=== PATIENT | female | born 1995 | race Caucasian/White ===

== ENCOUNTER 2016-06-28 17:41 | Emergency (ER) | payer MEDICAID ==
--- NOTE | 2016-06-28 18:02 | Emergency Department Record ---
History of Present Illness - General Chief complaint: complication Stated complaint: VAG. BLEEDING/ 11 WKS PG Time Seen by Provider: 06/28/16 17:55 Source: Patient Mode of Arrival: Ambulatory Limitations: No limitations Travel/[facility] Within 21 Days of Symptoms: No - History of Present Illness Initial comments: 20 yo female presents with her 4th . She has a history of one elective , one live to term, and one miscarriage that occurred in the early fall. She believes she is about 11 weeks. She reports she is having vaginal bleeding and discomfort. She states she does not recall last night after she went to sleep. She wants to be checked for an STD. She was at [facility] just prior to arrival. [facility] had and [facility]. She declined transfer to [facility] at that time. MD Complaint: Vaginal bleeding Onset/Timin -: Hour(s) Location: Pelvis Radiation: None Severity scale (1-10): 4 Quality: Cramping Consistency: Constant Improves with: None Worsens with: None Associated symptoms: Vaginal bleeding Number of weeks : 11 Pre- care: None - Related Data : 4 Para: 1 Ab: 2 Home Medications Medication Instructions Recorded Confirmed Last Taken No Home Med [NO HOME MEDS] 06/28/16 06/28/16 Unknown Allergies Allergy/AdvReac Type Severity Reaction Status Date / Time Penicillins Allergy HIVES Verified 08/18/14 20:37 Review of Systems Constitutional: Denies: Chills, Fever, Malaise, Weakness Eyes: Denies: Eye discharge ENT: Denies: Congestion, Throat pain Respiratory: Denies: Cough Cardiovascular: Denies: Chest pain, Palpitations, Syncope Endocrine: Denies: Fatigue Gastrointestinal: Denies: Abdominal pain, Diarrhea, Nausea, Vomiting Genitourinary: Reports: Abnormal menses. 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 - RESPIRATORY Hx Respiratory Disorders: No - CARDIOVASCULAR Hx Cardio Disorders: No - NEURO Hx Neuro Disorders: No - GI Hx GI Disorders: No - Hx Genitourinary Disorders: No - ENDOCRINE Hx Endocrine Disorders: No - MUSCULOSKELETAL Hx Musculoskeletal Disorders: No - PSYCH Hx Psych Problems: No - HEMATOLOGY/ONCOLOGY Hx Hematology/Oncology Disorders: No Family Medical History Any Significant Family History?: No Physical Exam - General General Appearance: Alert, Oriented x3, Cooperative, No acute distress Limitations: No limitations - Head Head exam: Normal inspection - Eye Eye exam: Normal appearance - ENT ENT exam: Normal exam Ear exam: Normal external inspection Nasal Exam: Normal inspection Mouth exam: Normal external inspection Teeth exam: Normal inspection - Neck Neck exam: Normal inspection - Respiratory Respiratory exam: Normal lung sounds bilaterally. negative: Respiratory distress - Cardiovascular Cardiovascular Exam: Regular rate, Normal rhythm, Normal heart sounds - GI/Abdominal GI/Abdominal exam: Soft. negative: Distended, Guarding, Rebound, Rigid, Tenderness - Rectal Rectal exam: Deferred - exam: Normal bimanual exam, Vaginal discharge (thin white). negative: Abnormal external exam, Adnexal mass (L), Adnexal mass (R), Adnexal tenderness ( L), Adnexal tenderness (R), Cervical discharge, cervical motion tenderness - Extremities Extremities exam: Normal inspection, Full ROM, Normal capillary refill. negative: Pedal edema, Tenderness - Back Back exam: Reports: Normal inspection, Full ROM. Denies: Muscle spasm, Rash noted, Tenderness - Neurological Neurological exam: Alert, Normal gait, Oriented X3 - Psychiatric Psychiatric exam: Normal affect, Normal mood. negative: Agitated, Anxious - Skin Skin exam: Dry, Intact, Normal color, Warm Course Vital Signs 06/28/16 17:47 Temperature 98.1 F Pulse Rate 113 H Respiratory 18 Rate Blood Pressure 116/79 Pulse Ox 97 - Reevaluation(s) Reevaluation #1: US from [facility] requested. 06/28/16 18:03 Reevaluation #2: The patient was again offered assistance for a SANE evaluation She is again declining. She requests antibiotics if the event of an STD exposure Pelvis completed. 06/28/16 18:11 Reevaluation #3: Us report from [facility] reviewed: single viable IUP at 11w4d. no other acute abnormality noted. 06/28/16 18:17 Medical Decision Making - Lab Data Result diagrams: 06/28/16 18:15 06/28/16 18:15 Disposition Clinical Impression: Threatened miscarriage Disposition: Home, Self-Care Condition: (1) Good Instructions: (ED) Additional Instructions: Call for OB follow up next available Return if you have pain, fever, bleeding or vaginal discharge You have cultures in the lab that will result in about 2 days You may still consider a SANE nurse evaluation and it is encouraged you go to [facility] for this evaluation Forms: Patient Portal Access
[2016-06-28] MEDS ORDERED: AZITHROMYCIN 500 MG TABLET PO ONE (18:06)
[2016-06-28] MEDS ORDERED: CEFTRIAXONE 250 MG VIAL IM ONE (18:06)
[2016-06-28 18:26] LABS: BASO % 0.2 % (0-6); EOS % 1.2 % (0-6); GRAN % 73.3 % (47-80); HEMATOCRIT 35.7 % (35.0-47.0); HEMOGLOBIN 12.5 gm/dl (11.6-16.0); LYMPH % 19.4 % (16-45); MEAN CELL VOLUME 82.1 fl (81-97); MEAN CORPUSCULAR HEMOGLOBIN 28.7 pg (27-33); MEAN PLATELET VOLUME 9.6 fl (7.4-10.4); MONO % 5.9 % (0-9); PLATELET COUNT 289 K/uL (130-400); RED BLOOD COUNT 4.35 M/uL (3.80-5.40); RED CELL DISTRIBUTION WIDTH 12.9 % (11.5-14.5); WHITE BLOOD COUNT W/O DIFF 14.7 K/uL (4.2-12.2)
[2016-06-28 18:30] LABS: AMPHETAMINE SCREEN URINE NOT DETECTED; BARBITURATE SCREEN URINE NOT DETECTED; BENZODIAZEPINE SCREEN URINE NOT DETECTED; COCAINE SCREEN URINE NOT DETECTED; METHADONE SCREEN URINE NOT DETECTED; METHAMPHETAMINE SCREEN NOT DETECTED; OPIATE SCREEN URINE NOT DETECTED; OXYCODONE SCREEN URINE NOT DETECTED; PHENCYCLIDINE SCREEN URINE NOT DETECTED; PROPOXYPHENE SCREEN URINE NOT DETECTED; THC SCREEN URINE NOT DETECTED; TRICYCLIC ANTIDEPRESSANT SCRN NOT DETECTED
[2016-06-28 18:31] LABS: URINE APPEARANCE SL CLOUDY; URINE BILIRUBIN NEGATIVE (NEGATIVE); URINE COLOR YELLOW; URINE GLUCOSE (UA) NEGATIVE (NEGATIVE); URINE KETONE 40 mg/dL (NEGATIVE); URINE PROTEIN NEGATIVE (NEGATIVE)
[2016-06-28 18:32] LABS: URINE BLOOD TRACE-NONHEMOLYZED (NEGATIVE); URINE LEUKOCYTE ESTERASE NEGATIVE (NEGATIVE); URINE NITRITE NEGATIVE (NEGATIVE); URINE UROBILINOGEN 0.2 E.U./dL (0.20 - 1.00)
[2016-06-28 18:35] LABS: ANION GAP 12.5 (7-16); BLOOD UREA NITROGEN 8 mg/dL (7-17); CARBON DIOXIDE 22.5 mmol/L (22-30); CREATININE 0.5 mg/dL (0.52-1.04); EST GLOMERULAR FILTRATION RATE > 60 ml/min; GLUCOSE,RANDOM 96 mg/dL (70-110)
[2016-06-28 18:43] LABS: URINE BACTERIA FEW; URINE MUCUS MODERATE; URINE WBC 0 - 2 (0-2/hpf)
[2016-06-28] MEDS ORDERED: RHO(D) IMMUNE GLOBULIN 1,500 UNIT DISP.SYRIN IM ONE (18:58)
[2016-06-30 16:09] LABS: GC SPECIMEN TYPE Vaginal (())
== END 2016-06-28 19:27 | disposition home or self-care (01) ==
LOC: ER 17:41
DX: O20.0 Threatened abortion (principal); Z3A.11 11 weeks gestation of pregnancy
CPT/HCPCS: 99284 ×2; 96372; 85025; 84702; 80048; 81001; 86901; Q0111; G0477; J0696; J2790; 87210

== ENCOUNTER 2017-09-20 16:58 | Emergency (ER) | payer MEDICAID ==
--- NOTE | 2017-09-20 17:23 | Emergency Department Record ---
History of Present Illness - General Chief complaint: complication Stated complaint: VAGINAL BLEEDING/ Time Seen by Provider: 09/20/17 17:00 Source: Patient Mode of Arrival: Ambulatory Limitations: No limitations - History of Present Illness Initial comments: The patient states she is here due to a 4 day hx of mild pelvic cramping and vaginal bleeding. She did take a home preg test a week ago and it was positive. Her last normal LMP was about 7 weeks ago. The patient has had miscarriages in the past similar to this. She denies any AP, nausea, vomiting, or dizziness. MD Complaint: Vaginal bleeding Onset/Timin -: Days(s) Radiation: None Quality: Cramping Consistency: Intermittent Improves with: None Worsens with: Rest Associated symptoms: Vaginal bleeding Vaginal bleeding: Light, Heavy Number of weeks : 4 Pre-camilla care: None - Related Data : 6 Para: 1 Ab: 4 Previous Rx's Medication Instructions Recorded Clindamycin HCl [Cleocin HCl] 300 mg PO BID #14 capsule 09/20/17 Allergies Allergy/AdvReac Type Severity Reaction Status Date / Time Penicillins Allergy HIVES Verified 08/18/14 20:37 Review of Systems Constitutional: Denies: Chills, Fever Past Medical History - SOCIAL HISTORY Smoking Status: Light tobacco smoker (<10/day) Alcohol Use: None 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 - RESPIRATORY Hx Respiratory Disorders: No - CARDIOVASCULAR Hx Cardio Disorders: No - NEURO Hx Neuro Disorders: No - GI Hx GI Disorders: No - Hx Genitourinary Disorders: No - ENDOCRINE Hx Endocrine Disorders: No - MUSCULOSKELETAL Hx Musculoskeletal Disorders: No - PSYCH Hx Psych Problems: No - HEMATOLOGY/ONCOLOGY Hx Hematology/Oncology Disorders: No Family Medical History Any Significant Family History?: No Physical Exam - General General Appearance: Alert, Cooperative, No acute distress - Head Head exam: Atraumatic, Normocephalic, Normal inspection - Eye Eye exam: Normal appearance, PERRL - Neck Neck exam: Normal inspection, Full ROM. negative: Tenderness - Respiratory Respiratory exam: Normal lung sounds bilaterally. negative: Respiratory distress - Cardiovascular Cardiovascular Exam: Regular rate, Normal rhythm, Normal heart sounds - GI/Abdominal GI/Abdominal exam: Soft, Normal bowel sounds. negative: Tenderness - exam: Normal bimanual exam, Normal external exam, Normal speculum exam. negative: Adnexal mass (L), Adnexal mass (R), Adnexal tenderness (L), Adnexal tenderness (R), cervical motion tenderness, Vaginal bleeding (There is no bleeding on exam.), Vaginal discharge, Vaginal erythema - Extremities Extremities exam: Normal inspection, Full ROM, Normal capillary refill. negative: Tenderness Course Vital Signs 09/20/17 17:03 Temperature 98.3 F Pulse Rate 109 H Respiratory 20 Rate Blood Pressure 132/81 Pulse Ox 99 - Reevaluation(s) Reevaluation #1: The patient is doing very well at this time. I did discuss the US demonstrating a single live IUP. She is to practice pelvic rest and see her OB doctor in 1-2 weeks for recheck. 09/20/17 18:56 Medical Decision Making - Data Complexity MDM Data: Labs Ordered and/or Reviewed (the patient is RH Neg.), X-Ray Ordered and/or Reviewed - Lab Data Result diagrams: 09/20/17 17:20 09/20/17 17:20 - Radiology Data Radiology results: Report reviewed (US: SLIUP [id number]) Disposition Disposition: Discharge Clinical Impression: Threatened Disposition: Home, Self-Care Condition: (2) Stable Instructions: (ED) Additional Instructions: Please use Tylenol for pain and take the Clindamycin as directed. Please use pelvic rest precautions for 2 weeks. Please see your OB doctor in 1-2 weeks for recheck and a repeat US. Return to the ER for any worse pain, or bleeding. Prescriptions: Clindamycin HCl [Cleocin HCl] 300 mg PO BID #14 capsule Forms: Patient Portal Access Time of Disposition: 18:55 Quality - Quality Measures Quality Measures: - : US Determination Quality Measure: Measure #254: US Determination of Location ICD10 Codes Entered: Yes View Details: Yes US Determination of Location: < Trans-Abdominal or Trans-Vaginal US Performed > [G8806] - : Rhogam Quality Measure: Measure #255: Rhogam for Rh-Negative Women ICD10 Codes Entered: Yes Rhogam for Rh-Negative Women at Risk: < Rh-immunoglobulin (Rhogam) Ordered > [G8809] - Blood Pressure Screening View Details: Yes Does Patient Have Any of the Following: No Blood Pressure Classification: Normal BP Reading Systolic Measurement: 117 Diastolic Measurement: 73 Screening for High Blood Pressure: < Normal BP, F/U Not Required > [G8156]
[2017-09-20 17:28] LABS: BASO % 0.3 % (0-6); EOS % 0.6 % (0-6); GRAN % 70.5 % (47-80); HEMATOCRIT 41.9 % (35.0-47.0); HEMOGLOBIN 13.8 gm/dl (11.6-16.0); LYMPH % 22.2 % (16-45); MEAN CELL VOLUME 83.1 fl (81-97); MEAN CORPUSCULAR HEMOGLOBIN 27.4 pg (27-33); MEAN CORPUSCULAR HGB CONC 32.9 g/dl (32-36); MEAN PLATELET VOLUME 9.2 fl (7.4-10.4); MONO % 6.4 % (0-9); PLATELET COUNT 340 K/uL (130-400); RED BLOOD COUNT 5.04 M/uL (3.80-5.40); RED CELL DISTRIBUTION WIDTH 13.7 % (11.5-14.5); WHITE BLOOD COUNT W/O DIFF 14.2 K/uL (4.2-12.2)
[2017-09-20 17:42] LABS: BLOOD UREA NITROGEN 9 mg/dL (6-20); CREATININE 0.6 mg/dL (0.5-0.9); EST GLOMERULAR FILTRATION RATE > 60 mL/min
[2017-09-20 17:45] LABS: GLUCOSE,RANDOM 93 mg/dL (74-109)
[2017-09-20] MEDS ORDERED: RHO(D) IMMUNE GLOBULIN 1,500 UNIT DISP.SYRIN IM ONE (18:19)
--- NOTE | 2017-09-21 21:05 | ULTRASOUND REPORT ---
EXAM: ULTRASOUND OB PELV W TV - EARLY (4-13wks) HISTORY: THREATENED . TECHNIQUE: Hernandez-scale ultrasound images of the pelvis obtained transabdominally and transvaginally. Transvaginal exam obtained for improved resolution. COMPARISON: None. FINDINGS: Transabdominal Ultrasound of the Pelvis: The uterus and ovaries are not well seen due to bowel gas. No ascites. Transvaginal Ultrasound of the Pelvis: Uterus is retroverted and has normal size. An intrauterine gestational sac is present. A yolk sac is present. A crown-rump length is 0.17 cm, too small to detect cardiac activity. Ovaries are within normal limits with the corpus luteum in the left ovary. No ascites. IMPRESSION: FIRST TRIMESTER INTRAUTERINE GESTATION AT APPROXIMATELY 5 WEEKS, 2 DAYS BY CROWN -RUMP LENGTH MEASUREMENT. HECTOR IS 05/21/2018. EMBRYONIC VIABILITY IS NOT ESTABLISHED DUE EARLY GESTATION. RECOMMEND FOLLOW-UP IN TWO WEEKS. JOB NUMBER: [id number] MTDD
== END 2017-09-20 19:09 | disposition home or self-care (01) ==
LOC: ER 16:58
DX: O20.0 Threatened abortion (principal); O36.0910 Maternal care for other rhesus isoimmunization, first trimester, not applicable or unspecified; O99.331 Smoking (tobacco) complicating pregnancy, first trimester; F17.210 Nicotine dependence, cigarettes, uncomplicated; Z3A.01 Less than 8 weeks gestation of pregnancy
CPT/HCPCS: 99284; 96372; 99283; 85025; 84702; 80048; 84703; 86901; 76817; 76801; Q0111; J2790; 87210

== ENCOUNTER 2018-12-31 17:01 | Emergency (ER) | payer SELFPAY ==
[2018-12-31] MEDS ORDERED: GENTAMICIN SULFATE 0.3% OPTH 5 ML BTL OPTH ONE (17:36)
--- NOTE | 2018-12-31 17:41 | Emergency Department Record ---
History of Present Illness - General Chief complaint: Eye Problem Stated complaint: LT EYE LID SWELING Time Seen by Provider: 12/31/18 17:36 Source: Patient Mode of Arrival: Ambulatory Limitations: No limitations - History of Present Illness Initial comments: left upper eye lid with redness and tender. No change in vision or redness to eye. No pain with motion of eye. No DM No Trauma. no prior treatment. Onset/Timin -: Days(s) Onset Description: Unknown Location: Left eye Place: Home If Injury: None Eye Symptoms: Other Consistency: Constant Associated Symptoms: None Treatments Prior to Arrival: None - Related Data Home Medications Medication Instructions Recorded Confirmed Last Taken No Home Med [NO HOME MEDS] 12/31/18 12/31/18 Unknown Allergies Allergy/AdvReac Type Severity Reaction Status Date / Time Penicillins Allergy HIVES Verified 08/18/14 20:37 Travel Screening - Travel/Exposure Within Last 30 Days Have you traveled within the last 30 days?: No Review of Systems Constitutional: Denies: Chills, Fever, Weakness Eyes: Reports: As per HPI. Denies: Eye discharge, Eye pain, Photophobia, Vision change ENT: Denies: Congestion Respiratory: Denies: Cough Cardiovascular: Denies: Arrhythmia Endocrine: Denies: Polydipsia Gastrointestinal: Denies: Abdominal pain, Vomiting Musculoskeletal: Denies: Arthralgia Skin: Denies: Bruising Neurological: Denies: Headache, Weakness Psychiatric: Denies: Anxiety Past Medical History - SOCIAL HISTORY Smoking Status: Light tobacco smoker (<10/day) - RESPIRATORY Hx Respiratory Disorders: No - CARDIOVASCULAR Hx Cardio Disorders: No - NEURO Hx Neuro Disorders: No - GI Hx GI Disorders: No - Hx Genitourinary Disorders: No - ENDOCRINE Hx Endocrine Disorders: No - MUSCULOSKELETAL Hx Musculoskeletal Disorders: No - PSYCH Hx Psych Problems: No - HEMATOLOGY/ONCOLOGY Hx Hematology/Oncology Disorders: No Family Medical History Any Significant Family History?: No Physical Exam - General General Appearance: Alert, Oriented x3, Cooperative, No acute distress - Head Head exam: Atraumatic - Eye Eye exam: PERRL, EOMI (left upper lid margin red and tender without drainage. ). negative: Conjunctival injection - ENT ENT exam: Normal exam, Mucous membranes moist, Normal external ear exam, Normal orophraynx, TM's normal bilaterally - Neck Neck exam: Normal inspection, Full ROM. negative: Lymphadenopathy - Respiratory Respiratory exam: Normal lung sounds bilaterally. negative: Respiratory distress, Rhonchi - Cardiovascular Cardiovascular Exam: Regular rate, Normal rhythm - Extremities Extremities exam: Normal inspection - Neurological Neurological exam: Alert, Normal gait, Oriented X3 - Psychiatric Psychiatric exam: Normal affect, Normal mood - Skin Skin exam: Normal color. negative: Rash Course Vital Signs 12/31/18 17:12 Temperature 98.7 F Pulse Rate 100 H Respiratory 18 Rate Blood Pressure 126/83 Pulse Ox 100 Disposition Disposition: Discharge Clinical Impression: Sty Qualifiers: Laterality: left Eyelid: upper Qualified Code(s): H00.014 - Hordeolum externum left upper eyelid Disposition: Home, Self-Care Condition: (1) Good Instructions: Graham (ED) Additional Instructions: warm compress. Use drops two drops to left eye 4 times a day for 7 days or unil clear Return tothe ED if increased redness or pain. Time of Disposition: 17:40 Quality - Quality Measures Quality Measures: N/A - Blood Pressure Screening Does Patient Have Any of the Following: No Blood Pressure Classification: Pre-Hypertensive BP Reading Systolic Measurement: 126 Diastolic Measurement: 83 Screening for High Blood Pressure: < Pre-Hypertensive BP, F/U Documented > [G8950] Pre-Hypertensive Follow-up Interventions: Follow-up with rescreen every year.
== END 2018-12-31 18:09 | disposition home or self-care (01) ==
LOC: ER 17:01
DX: H00.014 Hordeolum externum left upper eyelid (principal); F17.210 Nicotine dependence, cigarettes, uncomplicated
CPT/HCPCS: 99282

== ENCOUNTER 2019-04-14 18:24 | Emergency (ER) | payer SELFPAY ==
--- NOTE | 2019-04-14 18:33 | Emergency Department Record ---
History of Present Illness - General Chief Complaint: Abdominal Pain Stated Complaint: ABN PAIN Time Seen by Provider: 04/14/19 18:24 Source: Patient Mode of Arrival: Ambulatory Limitations: No limitations - History of Present Illness Initial Comments: 23 yo female presents to ED for evaluation of lower abdominal pain for the past several days, reports LMP was 03/02 of this year. Patient reports "I just found out I was ", denies spotting or bleeding symptoms. Patient reports similar symptoms related to a miscarriage several years ago. Patient denies fevers, chills, or urinary symptoms. Patient has not established with an OB. MD Complaint: Abdominal pain -: Days(s) Location: Suprapubic, LLQ, RLQ Radiation: None Migration to: No migration Severity: Moderate Quality: Cramping Consistency: Constant Improves With: Nothing Worsens With: Nothing Associated Symptoms: Denies other symptoms - Related Data Allergies Allergy/AdvReac Type Severity Reaction Status Date / Time Penicillins Allergy HIVES Verified 08/18/14 20:37 Review of Systems Constitutional: Denies: Chills, Fever, Malaise, Night sweats Eyes: Denies: Eye discharge, Eye pain ENT: Denies: Congestion, Ear pain, Epistaxis Respiratory: Denies: Cough, Dyspnea Cardiovascular: Denies: Chest pain, Dyspnea on exertion Endocrine: Denies: Fatigue, Heat or cold intolerance Gastrointestinal: Reports: Abdominal pain. Denies: Nausea, Vomiting Genitourinary: Denies: Incontinence, Retention Musculoskeletal: Denies: Arthralgia, Back pain, Gout, Joint swelling Skin: Denies: Bruising, Change in color Neurological: Denies: Abnormal gait, Confusion, Headache Psychiatric: Denies: Anxiety Hematological/Lymphatic: Denies: Anemia, Blood Clots Past Medical History - SOCIAL HISTORY Smoking Status: Light tobacco smoker (<10/day) - RESPIRATORY Hx Respiratory Disorders: No - CARDIOVASCULAR Hx Cardio Disorders: No - NEURO Hx Neuro Disorders: No - GI Hx GI Disorders: No - Hx Genitourinary Disorders: No - ENDOCRINE Hx Endocrine Disorders: No - MUSCULOSKELETAL Hx Musculoskeletal Disorders: No - PSYCH Hx Psych Problems: No - HEMATOLOGY/ONCOLOGY Hx Hematology/Oncology Disorders: No Physical Exam - General General Appearance: Alert, Oriented x3, Cooperative, No acute distress Limitations: No limitations - Head Head exam: Atraumatic, Normocephalic, Normal inspection Head exam detail: negative: Abrasion, Contusion, Frias's sign, General tenderness, Hematoma, Laceration - Eye Eye exam: Normal appearance. negative: Conjunctival injection, Periorbital swelling, Periorbital tenderness, Scleral icterus - ENT Ear exam: negative: Auricular hematoma, Auricular trauma Nasal Exam: negative: Active bleeding, Discharge, Dried blood, Foreign body, Sinus tenderness Mouth exam: negative: Drooling, Laceration, Muffled voice, Tongue elevation - Neck Neck exam: Normal inspection. negative: Meningismus, Tenderness - Respiratory Respiratory exam: Normal lung sounds bilaterally. negative: Respiratory distress, Rhonchi, Stridor, Wheezes - Cardiovascular Cardiovascular Exam: Regular rate, Normal rhythm, Normal heart sounds - GI/Abdominal GI/Abdominal exam: Soft. negative: Rebound, Rigid, Tenderness - Rectal Rectal exam: Deferred - exam: Deferred - Extremities Extremities exam: Normal inspection. negative: Pedal edema, Tenderness - Back Back exam: Denies: CVA tenderness (R), CVA tenderness (L) - Neurological Neurological exam: Alert, Normal gait, Oriented X3 - Psychiatric Psychiatric exam: Normal affect, Normal mood - Skin Skin exam: Normal color. negative: Abrasion Type of lesion: negative: abrasion Course - Reevaluation(s) Reevaluation #1: 04/14/19 19:21 Laboratory studies were reviewed and appear grossly unremarkable for an acute process except for the following: WBC 13.8 HC Patient was updated on all results, will initiate transfer for US examination of IUP. Reevaluation #2: 04/14/19 19:39 Case was discussed with Dr. Rosario, will accept transfer for pelvic US. Patient was updated on the plan of care and is in agreement with transfer as discussed by private car. Medical Decision Making - Lab Data Result diagrams: 04/14/19 18:46 04/14/19 18:46 Disposition Disposition: Transfer Clinical Impression: Abdominal pain affecting Disposition: Acute Care Hospital Transfer Transfer To: [facility] Reason For Transfer: US pelvis Accepting Physician: Abraham Time Discussed w/Accepting Physician: 19:40 Condition: (2) Stable Forms: Patient Portal Access Time of Disposition: 19:40 Quality - Quality Measures Quality Measures: N/A, (14-50yr) - : US Determination Quality Measure: Measure #254: US Determination of Location ICD10 Codes Entered: Yes US Determination of Location: < Trans-Abdominal or Trans-Vaginal US Performed > [G8806] Reason for No US: Other (Transferring for US.) - : Rhogam Quality Measure: Measure #255: Rhogam for Rh-Negative Women Rhogam for Rh-Negative Women at Risk: Rh-immunoglobulin NOT Ordered [G8811] - Blood Pressure Screening Does Patient Have Any of the Following: No Blood Pressure Classification: Pre-Hypertensive BP Reading Systolic Measurement: 139 Diastolic Measurement: 88 Screening for High Blood Pressure: < Pre-Hypertensive BP, F/U Documented > [G8950] Pre-Hypertensive Follow-up Interventions: Referral to alternative/primary care provider.
[2019-04-14 18:50] LABS: ABSOLUTE NEUTROPHIL COUNT 9.07; BASO % 0.2 % (0-6); EOS % 2.1 % (0-6); GRAN % 65.8 % (47-80); HEMOGLOBIN 13.2 gm/dl (11.6-16.0); LYMPH % 25.9 % (16-45); MEAN CELL VOLUME 84.6 fl (81-97); MEAN CORPUSCULAR HEMOGLOBIN 27.9 pg (27-33); MEAN PLATELET VOLUME 9.7 fl (7.4-10.4); PLATELET COUNT 352 K/uL (130-400); RED BLOOD COUNT 4.73 M/uL (3.80-5.40); RED CELL DISTRIBUTION WIDTH 13.3 % (11.5-14.5); URINE APPEARANCE CLOUDY; URINE BILIRUBIN NEGATIVE (NEGATIVE); URINE BLOOD NEGATIVE (NEGATIVE); URINE COLOR YELLOW; URINE GLUCOSE (UA) NEGATIVE (NEGATIVE); URINE KETONE NEGATIVE (NEGATIVE); URINE LEUKOCYTE ESTERASE NEGATIVE (NEGATIVE); URINE NITRITE POSITIVE (NEGATIVE); URINE PROTEIN NEGATIVE (NEGATIVE); URINE UROBILINOGEN 0.2 E.U./dL (0.20 - 1.00); WHITE BLOOD COUNT W/O DIFF 13.8 K/uL (4.2-12.2)
[2019-04-14 19:13] LABS: BLOOD UREA NITROGEN 7 mg/dL (6-20); CREATININE 0.6 mg/dL (0.5-0.9); EST GLOMERULAR FILTRATION RATE > 60 mL/min; TOTAL PROTEIN 7.1 g/dL (6.6-8.7)
[2019-04-14 19:15] LABS: GLUCOSE,RANDOM 115 mg/dL (74-109)
[2019-04-14 19:18] LABS: ALB/GLOB RATIO 1.6 (1.1-1.8); ALBUMIN 4.4 g/dL (4.0-5.0); ALKALINE PHOSPHATASE 71 U/L (35-104); ALT/SGPT 16 U/L (<33); AST/SGOT 15 U/L (10.0-35.0)
[2019-04-14 19:45] LABS: URINE RBC 0 - 2 (NONE SEEN)
[2019-04-14 19:46] LABS: URINE BACTERIA 2+; URINE EPITHELIAL CELLS 16 - 20 (FEW); URINE MUCUS MODERATE
== END 2019-04-14 19:55 | disposition short-term general hospital (02) ==
LOC: ER 18:24
DX: O26.891 Other specified pregnancy related conditions, first trimester (principal); R10.84 Generalized abdominal pain; O99.331 Smoking (tobacco) complicating pregnancy, first trimester; F17.210 Nicotine dependence, cigarettes, uncomplicated; Z3A.00 Weeks of gestation of pregnancy not specified
CPT/HCPCS: 80053; 81001; 84702; 85025; 99285